=== PATIENT | female | born 1980 | race Hispanic/Latino ===

== ENCOUNTER 2018-12-03 07:00 | Day surgery (SDC) | payer BC ==
[2018-12-01 17:11] LABS: BASOPHILS % (AUTO) 1.2 % (0.0-5.0); EOSINOPHILS % (AUTO) 0.7 % (0.0-8.0); HEMATOCRIT 29.6 % (36-48); MEAN CORPUSCULAR HEMOGLOBIN 20.9 pg (27.0-33.0); MEAN CORPUSCULAR HGB CONC 31.1 g/dL (32.0-36.0); MEAN CORPUSCULAR VOLUME 67.2 fL (79-99); MONOCYTES % (AUTO) 9.9 % (3.0-13.0); NEUTROPHILS % (AUTO) 66.2 % (40.0-77.0); PLATELET COUNT (AUTO) 577 K/uL (130-400); RED CELL DISTRIBUTION WIDTH 19.2 % (11.0-15.5); WHITE BLOOD COUNT (AUTO) 14.3 K/uL (4.8-10.8)
[2018-12-01 17:17] VITALS: BP 143/72
--- NOTE | 2018-12-02 12:40 | NUR ---
[facility] CALLED DR. ROBERSON, NOTIFIED PT'S WBC 14.3, H&H 9.2 & 29.6, PLT 577. NO FURTHER ORDERS GIVEN.
[2018-12-03] VITALS (13 sets, daily range): BP systolic 97–134; BP diastolic 58–94
[~2018-12-03] VITALS: Ht 154.9 cm; Wt 75.3 kg
[~2018-12-03 07:00] MED LIST: CLIN25GE TP; FOLIC ACID PO; IPRA42SP NS; LACTATED RINGERS 1000ML 1,000 ML IV SCH; MONT10TA24 PO; OMEP20CA10 PO; PREN-155 PO; [UNRECOGNIZED DRUG - OTHER] TP
[2018-12-03] MEDS ORDERED: PROPOFOL 10 MG/ML 20ML VIAL IV ONE ×2 (08:06→08:28)
[2018-12-03] MEDS ORDERED: MIDAZOLAM HCL 1 MG/ML 2ML VIAL ONE (08:06)
[2018-12-03] MEDS ORDERED: ONDANSETRON HCL 4 MG/2 ML VIAL ONE (08:07)
[2018-12-03] MEDS ORDERED: FENTANYL CITRATE PF 50 MCG/1 ML 2ML VIAL ONE (08:07)
[2018-12-03] MEDS ORDERED: MEPERIDINE-PF 25 MG/ML SYG ONE (09:15)
[2018-12-03] MEDS ORDERED: KETOROLAC TROMETHAMINE 30MG/ML ONE (09:15)
--- NOTE | 2018-12-03 10:15 | NUR ---
PATIENT ARRIVED BACK FROM PACU IN NO DISTRESS, PATIENT STATES FEELING WELL. PATIENT REQUESTING TO TALK TO YONATHAN. CALLED YONATHAN NO ANSWER LEFT MESSAGE. SCANT VAGINAL BLEEDING.
--- NOTE | 2018-12-03 10:46 | NUR ---
YONATHAN MCCOY IN TO [place] TO PATIENT, CALLED CASE MANAGEMENT TO SEE IF ANY SUPPORT GROUPS AVAILABLE TO PATIENT PER [facility] TO [place] [facility]. LEFT MESSAGE ON VOICE MAIL WITH PATIENT PHONE NUMBER AND NAME.
--- NOTE | 2018-12-03 11:00 | NUR ---
BOTH PATIENT AND HER SPOUSE RECEIVED INFORMATION ON SUPPORT GROUPS. PATIENT WHEELS TO [place] PER HER REQUEST. ASK PATIENT TO PLEASE CALL US WHEN READY TO BE TAKEN TO THE FRONT AND TO PLEASE STAY IN WHEELCHAIR.
== END 2018-12-03 11:10 | disposition home or self-care (01) ==
LOC: DAH 07:00
DX: O03.4 Incomplete spontaneous abortion without complication (principal); Z83.3 Family history of diabetes mellitus; K21.9 Gastro-esophageal reflux disease without esophagitis; Z79.899 Other long term (current) drug therapy; Z98.890 Other specified postprocedural states; E66.9 Obesity, unspecified; R06.02 Shortness of breath
CPT/HCPCS: 36415; 58558; 85025; 88305; A4351; A4355; A4930; J1885; J2175; J2250; J2405; J2704 ×2; J3010